=== PATIENT | male | born 1985 | race Caucasian/White ===

== ENCOUNTER 2020-03-20 10:08 | Outpatient (CLI) | payer OTHER, SELFPAY ==
--- NOTE | 2020-03-20 10:45 | NEURO_ITS ---
Patient Number: [id number] Impression: # Complains of pain and numbness in upper extremities. # No Carpal Tunnel Syndrome or ulnar neuropathy. # Normal needle/EMG exam. Nerve Conduction Studies Anti Sensory Summary Table Stim Site NR Peak (ms) P-T Amp (?V) Site1 Site2 Delta-P (ms) Dist (cm) Alex (m/s) Left Median Anti Sensory (2-3nd Digit) Wrist 2.8 75.2 Wrist 2-3nd Digit 2.8 14.0 50 Wrist 2.8 69.1 Wrist 2-3nd Digit 2.8 14.0 50 Right Median Anti Sensory (2-3nd Digit) Wrist 2.8 57.2 Wrist 2-3nd Digit 2.8 14.0 50 Wrist 2.8 43.1 Wrist 2-3nd Digit 2.8 14.0 50 Left Radial Anti Sensory (Base 1st Digit) Wrist 1.8 33.8 Wrist Base 1st Digit 1.8 0.0 Right Radial Anti Sensory (Base 1st Digit) Wrist 2.2 19.8 Wrist Base 1st Digit 2.2 0.0 Left Ulnar Anti Sensory (5th Digit) Wrist 2.1 48.6 Wrist 5th Digit 2.1 14.0 67 Right Ulnar Anti Sensory (5th Digit) Wrist 2.1 71.7 Wrist 5th Digit 2.1 14.0 67 Motor Summary Table Stim Site NR Onset (ms) O-P Amp (mV) Site1 Site2 Delta-0 (ms) Dist (cm) Alex (m/s) Left Median Motor (Abd Poll Brev) Wrist 3.6 2.7 Elbow Wrist 4.8 30.0 62 Elbow 8.4 4.5 Right Median Motor (Abd Poll Brev) Wrist 2.9 10.4 Elbow Wrist 4.8 29.0 60 Elbow 7.7 9.0 Left Ulnar Motor (Abd Dig Minimi) Wrist 2.3 4.9 A Elbow Wrist 4.7 29.0 62 A Elbow 7.0 4.3 Right Ulnar Motor (Abd Dig Minimi) Wrist 2.5 7.7 A Elbow Wrist 4.5 28.0 62 A Elbow 7.0 5.8 F Wave Studies NR F-Lat (ms) L-R F-Lat (ms) Left Median (Mrkrs) (Abd Poll Brev) 27.09 0.30 Right Median (Mrkrs) (Abd Poll Brev) 27.39 0.30 Left Ulnar (Mrkrs) (Abd Dig Min) 26.56 0.24 Right Ulnar (Mrkrs) (Abd Dig Min) 26.32 0.24 EMG Side Muscle Nerve Root Ins Act Fibs Amp Dur Recrt Comment Right 1stDorInt Ulnar C8-T1 Nml Nml Nml Nml Nml Right Ext Indicis Radial (Post Int) C7-8 Nml Nml Nml Nml Nml Right Ext Digitorum Radial (Post Int) C7-8 Nml Nml Nml Nml Nml Right BrachioRad Radial C5-6 Nml Nml Nml Nml Nml Right PronatorTeres Median C6-7 Nml Nml Nml Nml Nml Right Abd Poll Brev Median C8-T1 Nml Nml Nml Nml Nml Left 1stDorInt Ulnar C8-T1 Nml Nml Nml Nml Nml Left Ext Indicis Radial (Post Int) C7-8 Nml Nml Nml Nml Nml Left Ext Digitorum Radial (Post Int) C7-8 Nml Nml Nml Nml Nml Left BrachioRad Radial C5-6 Nml Nml Nml Nml Nml Left PronatorTeres Median C6-7 Nml Nml Nml Nml Nml Left Abd Poll Brev Median C8-T1 Nml Nml Nml Nml Nml Right ABD Dig Min Ulnar C8-T1 Nml Nml Nml Nml Nml Left ABD Dig Min Ulnar C8-T1 Nml Nml Nml Nml Nml MTDD
== END 2020-03-20 10:09 | disposition home or self-care (01) ==
LOC: ANHNEURO 10:10
PROVIDERS: PCP Emergency Medicine; Visit Provider Emergency Medicine
DX: G56.00 Carpal tunnel syndrome, unspecified upper limb (principal)
CPT/HCPCS: 95886; 95911

== ENCOUNTER 2022-03-23 09:20 | Outpatient (CLI) | payer OTHER, SELFPAY ==
--- NOTE | ~2022-03-23 | MR_ITS ---
EXAMINATION: MR elbow LT wo con DATE: 03/23/2022 10:36 INDICATION: Left elbow pain TECHNIQUE: Magnetic resonance imaging (MRI) of the left elbow was performed without intravenous contr ast. Sequences included coronal, axial, and sagittal PD-weighted FS FSE and coronal, axial, and sagit prateek PD-weighted FSE. COMPARISON: None FINDINGS: Osseous/other: Normal alignment. No fracture, osteochondral lesion or abnormal marrow replacing process. Mild likely reactive edema at the lateral epicondyle. Tendons: Triceps, biceps brachii and brachialis tendons are normal. Common flexor tendon wad is normal. Mild tendinopathy without discrete tear at the origin of the common extensor tendon wad. Ligaments: The medial collateral ligament complex is normal. There is thickening and mild increased signal at th e lateral epicondylar origin of the lateral ulnar collateral ligament component and to lesser degree posterior aspect of the lateral collateral ligament component of the lateral collateral ligament comp lizzeth with mild surrounding soft tissue edema consistent with low-grade sprain/partial tear. Cubital tunnel: Cubital tunnel is unremarkable with normal signal and caliber of the ulnar nerve. Fluid: Physiologic amount of fluid the elbow joint. IMPRESSION: 1. Lateral epicondylitis with low-grade sprain/partial tear at the lateral epicondylar origin of the lateral collateral ligament and lateral ulnar collateral ligament components of the lateral collatera l ligament complex. 2. Mild tendinopathy without discrete tear at the lateral epicondylar origin of the common extensor t endon wad. Reviewed, dictated and finalized at location A. IMPRESSION: 1. Lateral epicondylitis with low-grade sprain/partial tear at the lateral epic ondylar origin of the lateral collateral ligament and lateral ulnar collateral ligament components of the lateral collateral ligament complex. 2. Mild tendinopathy without discrete tear at the lateral epicondylar origin of the common extensor tendon wad.
== END 2022-03-23 09:21 | disposition home or self-care (01) ==
PROVIDERS: PCP Emergency Medicine
DX: M77.12 Lateral epicondylitis, left elbow (principal)
CPT/HCPCS: 73221

== ENCOUNTER 2022-07-11 09:41 | Emergency (ER) | payer OTHER, SELFPAY ==
[2022-07-11 10:00] VITALS: BP 122/81; PULSE 77; RESP 14; TEMP 36.9; O2SAT 100
--- NOTE | 2022-07-11 10:56 | ED.GENADULT ---
HPI - General Adult General Chief complaint: Eye Problems Stated complaint: Eye Problem Source: patient Mode of arrival: ambulatory Limitations: no limitations History of Present Illness HPI narrative: Patient presents for evaluation of redness and tearing from the right eye for the past 6 days. The day prior he had a fever which persisted until time of eye symptom onset. Temperature fluctuated between 101.0 and 104.0. He states he had similar symptoms in the past with herpes ophthalmicus. He states he saw several providers before this was identified and was ultimately treated with oral antivirals. He reports some lesions to the nasal bridge. He has no genital or oral lesions at the present time. He states he has some chronic blurred vision in right eye following episode of herpes ophthalmicus. He has no new visual disturbance with his current symptoms. No additional complaints or concerns. Related Data Allergies Allergy/AdvReac Type Severity Reaction Status Date / Time No Known Allergies Allergy Verified 07/11/22 10:25 Review of Systems Review of Systems: CONSTITUTIONAL: Reports recent fever. Denies chills, or sweats. EYES: Reports redness, tearing, and discomfort in the right eye. ENT: Denies rhinorrhea, congestion, sore throat, or otalgia. CARDIOVASCULAR: Denies chest pain, palpitations, or edema. RESPIRATORY: Denies cough or dyspnea. GASTROINTESTINAL: Denies abdominal pain, nausea, vomiting, or diarrhea. GENITOURINARY: Denies dysuria or hematuria. SKIN: Port skin lesions to the nose. MUSCULOSKELETAL: Denies back pain, joint pain, or myalgia. NEUROLOGIC: Denies headache, numbness, dizziness, or weakness. PSYCHIATRIC: Denies anxiety or depression. [facility] Past Medical History Medical History (Updated 07/11/22 @ 11:21 by CONNIE Ly, SHELIA) Herpes simplex ophthalmicus Surgical History Surgical History No pertinent past surgical history Family History Family History (Updated 07/11/22 @ 11:04 by CONNIE Ly, SHELIA) Father Family history non-contributory Social History Social History (Updated 07/11/22 @ 11:04 by CONNIE Ly, SHELIA) Substance use: never Gender identity (if verbalized by the patient): Male Spiritual care concerns: No Exam Narrative: GENERAL: Well-appearing, well-nourished, and in no acute distress. HEAD: Normocephalic, atraumatic. EYES: PERRLA and EOMI. Right-sided conjunctival injection. There are areas of dye uptake to the right eye when evaluated with fluorescein and Wood's lamp concerning for herpes ophthalmicus ENT: Nares clear, no rhinorrhea or epistaxis. Mucous membranes moist. Oropharynx without tonsillar hypertrophy exudate or other lesions. Bilateral TMs pearly mejia nonbulging NECK: Supple. No adenopathy or masses. No carotid bruits or JVD CHEST: Clear to auscultation. No respiratory distress. No wheezes rales or rhonchi HEART: Regular rate and rhythm. No murmur heard. Normal peripheral pulses. ABDOMEN: Soft, nontender, nondistended, normal active bowel sounds. EXTREMITIES: Normal range of motion. No edema. SKIN: There are several scabbed lesions noted to the nasal bridge NEURO: No focal deficits. Alert and oriented x3. PSYCH: Normal mood and affect. Course Course Emergency Course: This is a 37-year-old male who presented for evaluation of right eye discomfort, redness and tearing. He is dye uptake on exam concerning for herpes ophthalmicus. I contacted Ophthalmology at [facility] and spoke with Dr. Tate, who recommended patient be placed on erythromycin ophthalmic ointment and and oral Valtrex. They will see patient in clinic tomorrow at 9:00 a.m.. Patient was provided with contact information. These lesions were swabbed for bacterial culture and viral culture. Will add Bactroban ointment due to nasal lesions. Go to the ER for any change of vision. Patient in a
== END 2022-07-11 11:26 | disposition home or self-care (01) ==
PROVIDERS: Emergency Provider Nurse Practitioner; PCP Emergency Medicine
DX: B00.50 Herpesviral ocular disease, unspecified (principal)
CPT/HCPCS: 87070; 87205; 87255; 99213; A9270; G0463

== ENCOUNTER 2025-08-05 17:15 | Emergency (ER) | payer OTHER, SELFPAY ==
--- NOTE | ~2025-08-05 | XR_ITS ---
EXAMINATION: XR facial bones min 3V DATE: 08/05/2025 17:49 INDICATION: Right mandible injury TECHNIQUE: AP, Armendariz and lateral views of the facial bones were obtained. COMPARISON: None. FINDINGS: No maxillofacial fractures identified. Mastoid air cells are well pneumatized. No air-fluid levels in the paranasal sinuses. IMPRESSION: 1. No maxillofacial fractures. Reviewed, dictated and finalized at location A. TER FOREMAN
--- OUTSIDE RECORDS SUMMARY | 2025-08-05 17:20 | XMS_ITS | Clinical Summary ---
Author Organization [facility] [address] [facility] lto Address [address] [place] [address] Care Team Providers Care Scientific Software Engineer Name Role Phone Magdaleno Mooney MD Primary Care Provider [phone] Allergies No known active allergies Medications oxyBUTYnin XL (DITROPAN-XL) 10 mg 24 hr tablet Take 1 tablet (10 mg total) by mouth daily 03/07/2025 Active Active Problems No known active problems Social History Tobacco Use Types Packs/Day Years Used Date Smoking Tobacco: Every Day Vaping Smokeless Tobacco: Never Sex and Gender Information Value Date Recorded Sex Assigned at Not on file 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 Gender Identity Not on file Sexual Orientation Not on file Last Filed Vital Signs Vital Sign Reading Time Taken Comments Blood Pressure 124/90 03/24/2025 4:36 PM CDT Pulse 104 03/24/2025 4:36 PM CDT Temperature 37.1 C (98.8 F) 03/24/2025 4:36 PM CDT Respiratory Rate 18 03/24/2025 4:36 PM CDT Oxygen Saturation 98% 03/24/2025 4:36 PM CDT Inhaled Oxygen Concentration - - Weight 64.5 kg (142 lb 3.2 oz) 03/24/2025 4:36 P M CDT Height 167.6 cm (5' 6) 08/27/2019 4:58 PM ELECTRICAL CONTROLS TECHNICIAN Body Mass Index 22.95 08/27/2019 4:58 PM ELECTRICAL CONTROLS TECHNICIAN Plan of Treatment Health Maintenance Due Date Last Done Comments Depression Screening 1985 Hepatitis C Screening 1985 Varicella Vaccines (1 of 2 - 13+ 2-dose series) 1999 DTaP/Tdap/Td Vaccine (6 - Tdap) 08/08/2002 08/07/2002, 04/09/1991, 05/24/1988, Additional history exists Regular Well Visit/Exam 18-64 2004 Pneumococcal vaccine <65 (1 of 2 - PCV) 2005 HPV Vaccines (1 - 3-dose SCD M series) 2013 Influenza Vaccine (#1) 2025 Hepatitis B Screening Completed 12/25/1996 , 09/11/1996, 08/07/1996 Insurance [facility] Care Teams Scientific Software Engineer Relationship Specialty Start Date End Date Magdaleno Mooney MD [address] [place] [address] PCP - General Family Medicine 08/27/19
--- OUTSIDE RECORDS SUMMARY | 2025-08-05 17:20 | XMS_ITS | Encounter Summary ---
Author Organization [facility] Address 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
[2025-08-05 17:22] VITALS: BP 153/106; PULSE 56; RESP 16; TEMP 36.6; O2SAT 100
--- NOTE | 2025-08-05 17:34 | ED.GENADULT ---
HPI - General Adult General Chief complaint: Unspecified Stated complaint: Right Jaw Injury Time Seen by Provider: 08/05/25 17:34 Source: patient, RN notes reviewed and old records reviewed Mode of arrival: ambulatory Limitations: no limitations History of Present Illness HPI narrative: 40 year old male presents to express care with complaints of carrying large Simba tote from basement up and fell hitting the right side of his jaw onto the corner of a laminate counter top on the evening prior to Thanksgiving. Patient has with healing laceration noted and difficult opening and closing his mouth and pain to his right mandibular area. Patient states that he can't eat is able to take small sips of fluids only due to pain and difficulty opening his mouth.Patient denies any difficulty swallowing or with his breathing no swelling under tongue or under jawline. MD complaint: right jaw pain unable to open mouth very much,back right teeth feel uneven Onset (ago): day(s) (evening 06/30/2025) Location: face (right mid mandible) Severity: moderate Severity scale (1-10): 7 Quality: aching and other (shooting and soreness) Exacerbating factors: eating (trying to eat) and other (trying to open mouth very far) Treatments prior to arrival: NSAID Related Data Home Medications ?Medication ?Instructions ?Recorded ?Confirmed ?Last Taken ?Type bjrpgqal-phsnjgma-ezkhw acid 400 tablet PO 11/01/22 07/09/24 Unknown History mcg-vit K 20 mcg-lycop 300 mcg tablet (One-A-Day Men's Multivitamin) Allergies Allergy/AdvReac Type Severity Reaction Status Date / Time No Known Allergies Allergy Verified 08/05/25 17:28 Review of Systems Review of Systems: CONSTITUTIONAL: Denies fever, chills, or sweats. EYES: Denies visual changes, redness, or discharge. ENT: Denies rhinorrhea, congestion, sore throat, or otalgia.positive for pain to the right mid mandible area after fall 5 days ago hitting his right mandible area on corner of laminate counter. 0.5cm healing laceration noted to area under jawline right side with no drainage or acute swelling. CARDIOVASCULAR: Denies chest pain, palpitations, or edema. RESPIRATORY: Denies cough or dyspnea. GASTROINTESTINAL: Denies abdominal pain, nausea, vomiting, or diarrhea. GENITOURINARY: Denies dysuria or hematuria. SKIN: Denies rash or itching. MUSCULOSKELETAL: Denies back pain, joint pain, or myalgia. NEUROLOGIC: Denies headache, numbness, or weakness. PSYCHIATRIC: positive for history of anxiety or depression. All systems reviewed & are unremarkable except as noted in HPI and below PMFSH Past Medical History Medical History (Updated 08/05/25 @ 18:06 by Alexandra Angeles APRN) Rib pain on left side OAB (overactive bladder) Lateral epicondylitis (tennis elbow) Left shoulder pain Depression Anxiety Encounter to establish care Fatigue Headache Herpes simplex ophthalmicus Surgical History Surgical History No pertinent past surgical history Family History Family History Father Family history non-contributory Other Hypertension Grandparent Hypertension Cerebrovascular accident Heart disease Social History Social History Smoking status: Former smoker Tobacco type: e-cigarettes/vaping Alcohol intake: current Alcohol use details: Socially Substance use: current Substance use type: marijuana Lack of Transportation: No Lack of Food: Never True Current Housing: I Have Housing Concerned About Future Housing: No Difficulty Paying Gas/Electric Bills: No Difficulty Paying for Meds: No Currently Unemployed: No Education: High School Diploma/GED Difficulty w/ Childcare or Family Care: No Gender identity (if verbalized by the patient): Male Spiritual care concerns: No Comments At time of signature, agree with nursing past medical, surgical, social and family history. There is no relevant family history pertinent to the presenting complaint Exam Narrative: GENERAL: Well-appearing, well-nourished, and in no acute distress. HEAD: Normocephalic, atraumatic. EYES: PERRLA and EOMI. ENT: Nares clear, no rhinorrhea or epistaxis. Mucous membranes moist. pain tot he right mandible area with patient reporting that he has trouble opening and closing his mouth since sustaining fall and hitting his mid right mandible area on laminated countertop edge. Patient reports that he had no LOC at time of incident, did not vomit or report any headache. Patient reports trouble opening and closing mouth is able to control own secretions no Sreedhar angina noted, no difficulty swallowing or with breathing.states that he is able to drink liquids in small amounts but has been unable to eat anything he has to chew. NECK: Supple. no lymphadenopathy. moves neck in all ways without pain or difficulty CHEST: Clear to auscultation. No respiratory distress. no cough noted SAO2 100% on room air HEART: Regular rate and rhythm. No murmur heard. Normal peripheral pulses. ABDOMEN: Soft, nontender, nondistended, normal active bowel sounds. EXTREMITIES: Normal range of motion. No edema. SKIN: Warm, dry, no rash. NEURO: No focal deficits. Alert and oriented x3. Course Course Level of Care: Express Care Visit Vital Signs Vital signs: Vital Signs Temperature 36.6 C 08/05/25 17:22 Pulse Rate 56 L 08/05/25 17:22 Respiratory Rate 16 08/05/25 17:22 Blood Pressure 153/106 H 08/05/25 17:22 Pulse Oximetry 100 08/05/25 17:22 Oxygen Delivery Room Air 08/05/25 17:22 Temperature 36.6 C 08/05/25 17:22 Pulse Rate 56 L 08/05/25 17:22 Respiratory Rate 16 08/05/25 17:22 Blood Pressure 153/106 H 08/05/25 17:22 Pulse Oximetry 100 08/05/25 17:22 Oxygen Delivery Room Air 08/05/25 17:22 reviewed MDM Differential Diagnosis Differential Diagnosis: pain to right mandible, small healing jaw laceration, contusion right mandible Imaging Data Attestation: I personally reviewed and interpreted this imaging study as follows: My impression: no maxillo facial fractures Radiologist's impression: ITS Impressions Face X-Ray 08/05/25 17:50 IMPRESSION: 1. No maxillofacial fractures. [facility] [address] [place] [address] XRay Report Signed Patient: Skip Robbins : 1985 MR#: [id number] Age: 40 Acct:[id number] Loc: [facility] ADM Date: 08/05/[address]: Ordering Physician: Alexandra Angeles APRN Date of Service: 08/05/25 Procedure(s): XR facial bones min 3V Accession Number(s): [id number] cc: Alexandra Angeles Christa LEMUS; UNKNOWN,DOCTOR~ EXAMINATION: XR facial bones min 3V DATE: 08/05/2025 17:49 INDICATION: Right mandible injury TECHNIQUE: AP, Armendariz and lateral views of the facial bones were obtained. COMPARISON: None. FINDINGS: No maxillofacial fractures identified. Mastoid air cells are well pneumatized. No air-fluid levels in the paranasal sinuses. IMPRESSION: 1. No maxillofacial fractures. Reviewed, dictated and finalized at location A. STERED ASSOCIATE Please be advised this is a medical document. It is intended for jkrb-jg-ehil communication. It is written in medical language and may contain unfamiliar abbreviations or verbiage. Medical documents are intended to carry relevant information, facts as evident, and the clinical opinion of the practitioner at the time of the encounter. This report may have been done utilizing a voice recognition system. Attempts have been made to correct errors. However, there may be uncorrected grammatical, spelling, and recognition errors present. The file time of this note does not necessarily represent the time of service. Dictated By: Elbert Uriarte MD 08/05/25 2851 Signed By: <Electronically signed by Elbert Uriarte MD in OV> Critical Care Time Critical Care Time Critical Care Time: No Discharge Plan Discharge Clinical Impression: Contusion of right jaw region Patient Disposition: Home Condition: Stable Instructions: Facial Contusion (ED) Additional Instructions: Tylenol for lesser pain Ibuprofen regularly for the next 2-3 days for the inflammation 600 mg three times daily with food for the next 2-3 days Follow-up with PCP if further problems or concerns or any orders for further testing Ice to the area 20-30 minutes 4-6 times a day Elevate above heart muscle relaxer at bedtime If your symptoms persist, change or worsen significantly before you can contact your personal physician then please, without delay, go to the emergency department for further evaluation. Follow-up with PCP in 7-10 days or sooner if needed Follow up with PCP soon in regards to your blood pressure which is elevated above threshold for referral. Blood pressure above 120/80 may indicate pre-hypertension.153/106 Patient Language: Citizen Of [place] Prescriptions: New cyclobenzaprine 10 mg tablet 10 mg PO HS Qty: 14 0RF No Action One-A-Day Men's Multivitamin 400-20-300 mcg tablet PO fluoxetine 10 mg capsule 10 mg PO DAILY Qty: 90 3RF Follow-up/Referrals: UNKNOWN,DOCTOR [Primary Care Provider] Time of Disposition: 18:08 Quality Maria Isabel Coma Scale Eyes: Open Verbal: Oriented and Alert Motor: Follows Commands Maria Isabel Coma Total Score: 15
== END 2025-08-05 18:13 | disposition home or self-care (01) ==
PROVIDERS: Emergency Provider Registered Nurse
DX: S00.83XA Contusion of other part of head, initial encounter (principal); W19.XXXA Unspecified fall, initial encounter; F41.9 Anxiety disorder, unspecified; F32.A Depression, unspecified
CPT/HCPCS: 70150; 99213; G0463